=== PATIENT | male | born 2005 | race Caucasian/White ===

== ENCOUNTER 2023-07-10 20:53 | Emergency (ER) | payer MEDICAID ==
[~2023-07-10] VITALS: Ht 172.7 cm; Wt 68.0 kg
[2023-07-10 21:18] VITALS: BP 96/71; PULSE 95; RESP 20; TEMP 99.2; O2SAT 99
[2023-07-10] MEDS ORDERED: KETOROLAC 30 MG/ML VIAL IVP ONE (21:55)
[2023-07-10] MEDS ORDERED: ONDANSETRON 4 MG/2 ML VIAL IVP ONE (21:55)
[2023-07-10] MEDS ORDERED: NACL 0.9% 1,000 ML IV ONE (21:55)
[2023-07-10 22:15] LABS: BASOPHILS % (AUTO) 0.1 % (0.0-2.0); HEMATOCRIT 44.5 % (36-52); HEMOGLOBIN 15.2 g/dL (12.0-18.0); LYMPHOCYTES % (AUTO) 4.6 % (20.5-51.1); MEAN CORPUSCULAR HEMOGLOBIN 30 pg (27-31); MEAN CORPUSCULAR HGB CONC 34 g/dL (33-37); MEAN CORPUSCULAR VOLUME 88.3 fL (80-94); MONOCYTES % (AUTO) 9.3 % (1.7-9.3); NEUTROPHILS # (AUTO) 18.3 K/uL (1.8-7.7); PLATELET COUNT (AUTO) 281 K/uL (140-450); RED BLOOD CELL COUNT(AUTO) 5.04 MIL/uL (4.20-6.10); RED CELL DISTRIBUTION WIDTH 13.5 % (11.6-13.7); WHITE BLOOD COUNT (AUTO) 21.3 K/uL (4.5-11.0)
[2023-07-10 22:27] LABS: ANION GAP 13.8 (8-16); CALCIUM 9.6 mg/dL (8.5-10.1); CREATININE 1.2 mg/dL (0.6-1.3); POTASSIUM 3.8 mmol/L (3.5-5.1); TOTAL BILIRUBIN 1.5 mg/dL (0.0-1.0); TOTAL PROTEIN, SERUM 9.5 g/dL (6.4-8.2)
[2023-07-10 23:22] LABS: LACTIC ACID 1.5 mmol/L (0.4-2.0)
[2023-07-11] MEDS ORDERED: PROM118S5 PO (00:10)
[2023-07-11] MEDS ORDERED: AMOX1TAB8 PO (00:10)
[2023-07-11] MEDS ORDERED: IBUP-2213 PO (00:10)
[2023-07-11] MEDS ORDERED: ONDA-188 SL (00:10)
[2023-07-11 00:15] LABS: FLU A ANTIGEN negative (NEGATIVE); FLU B ANTIGEN NEGATIVE (NEGATIVE)
[2023-07-11 02:03] VITALS: BP 115/57; PULSE 93; RESP 13; TEMP 98.5; O2SAT 99
== END 2023-07-11 02:03 | disposition home or self-care (01) ==
LOC: MED 20:53
DX: J18.9 Pneumonia, unspecified organism (principal); Z20.822 Contact with and (suspected) exposure to COVID-19; E86.0 Dehydration; D72.829 Elevated white blood cell count, unspecified; R11.10 Vomiting, unspecified; Z79.899 Other long term (current) drug therapy
CPT/HCPCS: 36415; 71045; 74176; 76705; 80053; 83605; 83690; 85025; 87040; 87426; 87804; 96361; 96374; 96375; 99285; J1885; J2405; J7030; Q0092

== ENCOUNTER 2023-10-30 11:59 | Emergency (ER) | payer MEDICAID ==
[~2023-10-30] VITALS: Ht 175.3 cm; Wt 72.6 kg
[~2023-10-30 11:59] MED LIST: AMOX1TAB8 PO; IBUP-2213 PO; ONDA-188 SL; PROM118S5 PO
[2023-10-30 12:22] VITALS: BP 125/64; PULSE 75; RESP 20; TEMP 98.3; O2SAT 98
[2023-10-30 12:29] VITALS: TEMP 98.2
[2023-10-30] MEDS: ONDANSETRON 4 MG ODT PO ONE (13:17)
[2023-10-30] MEDS ORDERED: ONDA-188 PO (13:17)
[2023-10-30 13:44] VITALS: BP 112/55; PULSE 70; RESP 18; O2SAT 99
== END 2023-10-30 13:45 | disposition home or self-care (01) ==
LOC: MED 11:59
DX: R11.2 Nausea with vomiting, unspecified (principal); R19.7 Diarrhea, unspecified; R51.9 Headache, unspecified; R05.9 Cough, unspecified; J02.9 Acute pharyngitis, unspecified; Z79.1 Long term (current) use of non-steroidal anti-inflammatories (NSAID); Z79.2 Long term (current) use of antibiotics; Z79.899 Other long term (current) drug therapy
CPT/HCPCS: 82948; 99283; Q0162